=== PATIENT | male | born 1975 | race Caucasian/White ===

== ENCOUNTER 2016-10-28 21:04 | Emergency (ER) | payer BC ==
[~2016-10-28] VITALS: Ht 175.3 cm; Wt 106.6 kg
[2016-10-28 21:05] VITALS: BP 168/107
--- NOTE | 2016-10-29 14:10 | ED.ADGEN ---
Past Medical History Past Medical History: No Pertinent History Past Surgical History: No Surgical History Alcohol Use: None Drug Use: None Adult General Chief Complaint Chief Complaint: FINGER INJURY HPI HPI Patient is a 40 year old meal right-handed male who presents with persistent left index swelling 5 weeks after initial injury. Patient states swelling will improved, but after work will index finger be more swelling with limited range of motion. He denies acute injury or complaint. Is not been evaluated by primary care physician. Review of Systems Review of Systems ROS as per HPI. Allergies Allergies Allergies Coded Allergies Type Severity Reaction Last Updated Verified No Known Drug Allergies 06/05/13 No Physical Exam Physical Exam Constitutional: Well developed, well nourished, no acute distress, non-toxic appearance. Extremities:l Left index finger, normal swelling noted around PIP, normal range of motion. No deformities, bruising or erythema. Current Patient Data Vital Signs Vital Signs Date Time Temp Pulse Resp B/P (MAP) Pulse Ox O2 Delivery O2 Flow Rate FiO2 10/28/16 21:05 98.1 75 16 97 Room Air 98.1 EKG EKG [] Radiology/Procedures Radiology/Procedures [] Course & Med Decision Making Course & Med Decision Making Pertinent Labs and Imaging studies reviewed. (See chart for details) [Left index finger injury with intermittent swelling times several weeks. Recommend supportive care, jacob tape, and naproxen and PCP follow-up.] Dragon Disclaimer Dragon Disclaimer This electronic medical record was generated, in whole or in part, using a voice recognition dictation system. SOFI GOMEZ DO Oct 29, 2016 14:10
== END 2016-10-28 21:24 | disposition home or self-care (01) ==
LOC: ER 21:04
DX: S69.92XA Unspecified injury of left wrist, hand and finger(s), initial encounter (principal); X58.XXXA Exposure to other specified factors, initial encounter; Y93.89 Activity, other specified; Y92.89 Other specified places as the place of occurrence of the external cause; Y99.8 Other external cause status
CPT/HCPCS: 99281